=== PATIENT | male | born 1960 ===

== ENCOUNTER 2019-06-02 14:50 | Emergency (ER) | payer SELFPAY ==
[2019-06-02 14:51] VITALS: BP 149/93; PULSE 103; RESP 18; TEMP 36.4; O2SAT 98
--- NOTE | 2019-06-02 15:37 | ED.EYEPROB ---
HPI - Eye Problem General Chief complaint: Eye Problems Stated complaint: eye swelling/redness Time Seen by Provider: 06/02/19 15:37 Source: patient Mode of arrival: ambulatory Limitations: no limitations History of Present Illness HPI Narrative: A 58 y/o male, with a PMHx of glaucoma and left eye blindness, presents to the ED with c/o left eye redness and photophobia for 1 month that has worsened since onset. Pt will occasionally get a pinprick like feeling in his left eye. Pt's symptoms are worse when waking up. Pt notes that he has been off Repatha due to the fact that he lost his job and was unable to pay for it. Pt started drinking soda instead of tea and he thinks that this could have affected the pressure in his eye. Pt has been using eye drops with no relief. Pt does not follow up with an eye doctor. He reports left eye drainage, but denies right eye pain. Onset (ago): month(s) (1) Duration: progressively worsening Location: left eye Eye Symptoms: redness and photophobia Related Data Home Medications Medication Instructions Recorded Confirmed ezetimibe mg 06/02/19 lisinopril 06/02/19 metoprolol tartrate 06/02/19 rosuvastatin mg 06/02/19 Allergies Allergy/AdvReac Type Severity Reaction Status Date / Time BEE STINGS Allergy Unknown Swelling Uncoded 06/02/19 15:46 of Lip/Tongue/Throat Review of Systems Review of Systems: All systems reviewed & are unremarkable except as noted in HPI and below Eyes: Comments: Reports: left eye redness, photophobia, drainage; Denies: right eye pain [facility] Past Medical History Medical History (Updated 06/02/19 @ 16:29 by Florentino Martinez MD) Blind left eye Glaucoma Kidney stone Surgical History Surgical History H/O inguinal hernia repair Social History Social History (Updated 06/02/19 @ 15:45 by Shira Loco) Smoking status: Smoker, status unknown Comments 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 IOP R:18 L:55 Resp: Effort & Inspection: normal respiratory effort Skin: General skin exam: normal color Neuro: General: patient oriented x3 and moves all extremities Speech: normal speech Extrem: General: normal to inspection Course Vital Signs Vital signs: Vital Signs Temperature 36.4 C 06/02/19 14:51 Pulse Rate 103 H 06/02/19 14:51 Respiratory Rate 18 06/02/19 14:51 Blood Pressure 149/93 H 06/02/19 14:51 Pulse Oximetry 98 06/02/19 14:51 Temperature 36.4 C 06/02/19 14:51 Pulse Rate 103 H 06/02/19 14:51 Respiratory Rate 18 06/02/19 14:51 Blood Pressure 149/93 H 06/02/19 14:51 Pulse Oximetry 98 06/02/19 14:51 MDM - Eye Problem MDM Narrative Medical decision making narrative: He likely has acute angle closure glaucoma 2/2 his hyphema. He is already blind in this eye so there is minimal benefit to treatment, although this may provide some relief of the discomfort. Differential Diagnosis Differential diagnosis: Likely conjunctivitis, hyphema and glaucoma Medical Records Attestation: I reviewed the patient's medical records. Lab Data Attestation: I reviewed the patient's lab results. Discharge Plan Discharge Clinical Impression: Glaucoma Qualifiers: Glaucoma type: unspecified Laterality: left Qualified Code(s): H40.9 - Unspecified glaucoma Patient Disposition: Home, Self-Care Condition: Stable Instructions: Antibiotic Form Prescriptions: New timolol maleate (PF) 0.5 % dropperette 1 drop E
[2019-06-02] MEDS: TIMOLOL MALEATE 0.5% OP SOLN 5 ML BTL 1 DROP LEFT EYE (16:51)
== END 2019-06-02 17:00 | disposition home or self-care (01) ==
PROVIDERS: Emergency Provider Emergency Medicine
DX: H40.9 Unspecified glaucoma (principal); H54.62 Unqualified visual loss, left eye, normal vision right eye
CPT/HCPCS: 99283; A9270

== ENCOUNTER 2023-06-05 12:39 | Emergency (ER) | payer MEDICARE, MEDICAID, SELFPAY ==
[2023-06-05] VITALS (9 sets, daily range): BP systolic 112–116; BP diastolic 59–95; PULSE 72–85; RESP 16–28; TEMP 36.6; O2SAT 95–100
--- NOTE | ~2023-06-05 | CT_ITS ---
EXAMINATION: CT abdomen pelvis w con DATE: 06/05/2023 14:03 INDICATION: Right upper quadrant pain TECHNIQUE: Computed tomography (CT) of the abdomen and pelvis was performed with 100 mL Omnipaque-350 intravenous contrast. Automated exposure control and iterative reconstruction technique were employe d. The dose-length product was 1475.43 mGy-cm. COMPARISON: 11/10/2003, images only. FINDINGS: Lower thorax: Coronary artery calcification. Liver: Normal. Biliary/Gallbladder: Gallbladder is normal. No bile duct dilation. Pancreas: No mass or duct dilation. Spleen: Normal. Adrenals:No mass. Kidneys: 10 mm left upper pole calcification. Right lower pole staghorn calculus. 9 mm simple right l ower pole cyst. Bilateral cortical scarring. GI tract: No small or large bowel dilation. Appendix not confidently visualized. Mesentery/Peritoneum: No ascites, mass, or free air. Retroperitoneum: No mass. Atherosclerotic abdominal aortic and/or arterial calcifications. Pelvis: Moderate bladder wall thickening, with submucosal fat deposition. Prostate enlargement with c alcification.. Soft Tissues: Soft tissues and body wall unremarkable. Uncomplicated small bilateral fat-containing i nguinal hernias. Bones: No acute osseous finding. IMPRESSION: Bilateral nephrolithiasis, including right lower pole staghorn calculus. No evidence of obstructive u ropathy. Cystitis versus wall thickening from chronic outlet obstruction. Otherwise unremarkable CT abdomen and pelvis findings. Reviewed, dictated and finalized at location K. IMPRESSION: Bilateral nephrolithiasis, including right lower pole staghorn calculus. No kira dence of obstructive uropathy. Cystitis versus wall thickening from chronic outlet obstruction. Otherwise unremarkable CT abdomen and pelvis findings.
--- NOTE | 2023-06-05 13:02 | ED.ABDPAIN ---
HPI - Abdominal Pain General Chief Complaint: Abdominal Pain Stated Complaint: RLQ abdominal pain Time Seen by Provider: 06/05/23 13:02 Source: patient History of Present Illness HPI narrative: 62 years old white male drop of to the emergency room because of right lower quadrant pain started 5 days ago. Patient also has history of chronic pain all over his body including lower extremities upper extremities for years, no specific diagnosis, was seen by his family physician 3 days ago and declined to give him any narcotics at that time. Patient is so angry about that. History of hypertension, hyperlipidemia, coronary artery disease, stroke, atrial fibrillation currently on Eliquis. Patient denies radiation of pain, fever, chills, nausea, vomiting, history of abdominal surgery. Possible hernia repair. Related Data Home Medications Medication Instructions Recorded Confirmed ezetimibe 10 mg tablet mg 06/02/19 lisinopril 20 mg tablet 06/02/19 metoprolol tartrate 25 mg tablet 06/02/19 rosuvastatin 5 mg tablet mg 06/02/19 Allergies Allergy/AdvReac Type Severity Reaction Status Date / Time amoxicillin Allergy Rash Verified 06/05/23 13:28 BEE STINGS Allergy Unknown Swelling Uncoded 06/02/19 15:46 of Lip/Tongue/Throat Review of Systems Review of Systems: All systems reviewed & are unremarkable except as noted in HPI and below PMFSH Past Medical History Medical History Blind left eye Glaucoma Kidney stone Surgical History Surgical History H/O inguinal hernia repair Social History Social History Smoking status: Smoker, status unknown Exam Narrative: General appearance: Well-developed, well-nourished, looks in pain Skin: Pale Head: Normocephalic, nontraumatic Eyes: Clear conjunctiva ENT: Oropharynx normal, ears normal, nose normal Neck: Supple, nontender Chest and respiratory: Airway patent, no respiratory distress, no accessory muscle use Heart: Regular rate/rhythm Abdomen: Soft, nontender, no organomegaly, quiet bowel sounds Vascular: Normal peripheral pulses, normal capillary refill. Musculoskeletal: Normal range of motion, nontender back Neurologic: Alert and oriented ?3, DIRECTOR OF MAINTENANCE is normal as tested, no gross motor deficit Course Vital Signs Vital signs: Vital Signs Temperature 36.6 C 06/05/23 12:52 Pulse Rate 77 06/05/23 12:52 Respiratory Rate 16 06/05/23 12:52 Blood Pressure 112/59 L 06/05/23 12:52 Pulse Oximetry 100 06/05/23 12:52 Oxygen Delivery Room Air 06/05/23 12:52 Temperature 36.6 C 06/05/23 12:52 Pulse Rate 77 06/05/23 12:52 Respiratory Rate 16 06/05/23 12:52 Blood Pressure 112/59 L 06/05/23 12:52 Pulse Oximetry 100 06/05/23 12:52 Oxygen Delivery Room Air 06/05/23 12:52 MDM - Abdominal Pain MDM Narrative Medical decision making narrative: patient presents with right lower quadrant pain and pain all over his body for the last few days Physical exam showed that the patient is restless, uncomfortable Differential diagnosis include kidney stone, urinary tract infection, appendicitis, diverticulitis, constipation, cholecystitis Blood workup today showed WBC of 12.4 urinalysis came back positive for 3+ blood, CT scan abdomen and pelvis with IV contrast showed no acute abnormality, possible cystitis. Blood in the urine could represent passed kidney stone or could be a sign of urinary tract infection. My plan to discharge patient on Cipro. In the ED patient received 1 L of normal saline, 0.5 mg
[2023-06-05] MEDS: SODIUM CHLORIDE 0.9% IV 1,000 ML 999 ML IV CONT (13:16)
[2023-06-05] MEDS: ONDANSETRON INJ 4 MG/2 ML VIAL IV PUSH (13:17)
[2023-06-05] MEDS: HYDROmorphone HCL INJ (*CRX) 1 MG/ML SYR 0.5 MG IV PUSH (13:19)
[2023-06-05 13:21] LABS: Basophils Percent Auto 0.3 % (0.2-1.2); Eosinophils Absolute Auto 0.2 K/mm3 (0-0.3); Eosinophils Percent Auto 1.5 % (0-4.4); Hematocrit 47.7 % (42.0-52.0); Hemoglobin 15.6 g/dL (14.0-18.0); Immature Granulocyte Absolute 0.05 K/mm3 (0.00-0.031); Immature Granulocyte Percent A 0.4 % (0-0.5); Lymphocytes Absolute Auto 1.67 K/mm3 (0.9-3.2); Lymphocytes Percent Auto 13.5 % (18.3-44.2); Mean Corpuscular HGB Conc 32.7 g/dl (32-36); Mean Corpuscular Hemoglobin 29.5 pg (26-34); Mean Corpuscular Volume 90.2 fl (80-100); Monocytes Absolute Auto 0.7 K/mm3 (0.1-0.6); Monocytes Percent Auto 5.8 % (2.6-8.5); Neutrophils Absolute Auto 9.7 K/mm3 (1.3-6.7); Neutrophils Percent Auto 78.5 % (45.5-73.1); Platelet Count Result 275 k/mm3 (150-375); Red Blood Count 5.29 M/mm3 (4.6-6.20); Red Cell Distribution Width 14.1 % (11.5-14.5); White Blood Count 12.4 K/mm3 (4.5-10.0)
--- NOTE | 2023-06-05 13:22 | ECG_ITS ---
Measurements Intervals Ashley Rate: 71 P: 27 NC: 166 QRS: 22 QRSD: 94 T: 15 QT: 380 QTc: 413 Interpretive Statements SINUS RHYTHM CONSIDER INFERIOR INFARCT, AGE INDETERMINATE BASELINE ARTIFACT- I, II, III, AVR, AVL, AVF, V1 ABNORMAL ECG NO PREVIOUS ECG AVAILABLE FOR COMPARISON Electronically Signed On 06-05-2023 19:13:54 CDT by Loco Chinchilla D.O.
[2023-06-05 13:30] LABS: Alanine Aminotransferase 26 U/L (6-50); Albumin Level 4.8 g/dL (3.5-5.1); Alkaline Phosphatase 67 U/L (38-126); Aspartate Amino Transferase 30 U/L (17-59); Bilirubin,Total 0.8 mg/dL (0.2-1.3); Lipase 195 U/L (23-300)
[2023-06-05 13:48] LABS: Estimated CRCL calculation 58 ml/min; Estimated Glomerular Filt Rate 48
[2023-06-05] MEDS: KETOROLAC 30 MG/ML VIAL (*BKC) IV PUSH (14:58)
--- NOTE | 2023-06-05 16:51 | PC.NURSE ---
Pt said can not urinate at this time.
[2023-06-05 17:12] LABS: Bacteria Urine None Seen /hpf; RBC Urine >100 /hpf (0-2); Squamous Epithelial Cell Urine None Seen /hpf (Few)
[2023-06-05 17:21] LABS: Appearance Urine Cloudy (Clear); Bilirubin Urine Negative (Negative); Blood Urine 3+ (Negative); Color Urine Yellow (Yellow); Glucose Urine UA Negative (Negative); Ketones Urine 1+ mg/dL (Negative); Leukocyte Esterase Ur Negative LEU/UL (Negative); Nitrate Urine Negative (Negative); Protein Urine 2+ mg/dL (Negative); Specific Grav Ur 1.015 (1.001-1.035); Urobilinogen Urine 0.2 mg/dL (<2.0)
[2023-06-05 17:22] LABS: Add Urine Microscopic? YES
== END 2023-06-05 18:08 | disposition home or self-care (01) ==
PROVIDERS: Emergency Provider Emergency Medicine
DX: R10.31 Right lower quadrant pain (principal); R31.9 Hematuria, unspecified; I10 Essential (primary) hypertension; I25.10 Atherosclerotic heart disease of native coronary artery without angina pectoris; E78.5 Hyperlipidemia, unspecified; H40.9 Unspecified glaucoma; Z86.73 Personal history of transient ischemic attack (TIA), and cerebral infarction without residual deficits; H54.62 Unqualified visual loss, left eye, normal vision right eye; Z87.442 Personal history of urinary calculi; Z79.01 Long term (current) use of anticoagulants; N20.0 Calculus of kidney; R93.41 Abnormal radiologic findings on diagnostic imaging of renal pelvis, ureter, or bladder; R94.31 Abnormal electrocardiogram [ECG] [EKG]; I48.91 Unspecified atrial fibrillation
CPT/HCPCS: 36415; 74177; 80076; 81001; 83690; 85025; 87086; 93005; 96361; 96374; 96375; 99284; J1170; J1885; J2405; J7030; Q9967